=== PATIENT | female | born 1940 | race African-American/Black ===

== ENCOUNTER 2020-10-20 22:27 | Emergency (ER) | payer OTHER ==
[~2020-10-20] VITALS: Ht 162.6 cm; Wt 65.8 kg
[2020-10-20 22:52] VITALS: BP 213/89
[2020-10-20] MEDS ORDERED: cloNIDine HCL 0.1 MG TAB PO ONE (23:30)
== END 2020-10-21 00:43 | disposition home or self-care (01) ==
LOC: ER 22:27
DX: M79.645 Pain in left finger(s) (principal); M79.644 Pain in right finger(s); Z53.21 Procedure and treatment not carried out due to patient leaving prior to being seen by health care provider
CPT/HCPCS: 73130